=== PATIENT | female | born 1940 ===

== ENCOUNTER 2025-01-03 10:55 | Day surgery (SDC) | payer MEDICARE, BC ==
[~2025-01-03] VITALS: Ht 160 cm; Wt 78.0 kg
[2025-01-03] MEDS ORDERED: ACET500 (12:12)
[2025-01-03] MEDS ORDERED: BUSPIRONE HCL7.5 M1 (12:12)
[2025-01-03] MEDS ORDERED: 1/2 NS 250ml250 ML (12:13)
[2025-01-03] MEDS ORDERED: ZYRTEC10 M2 (12:13)
[2025-01-03] MEDS ORDERED: THERA-D2000 UNIT (12:13)
[2025-01-03] MEDS ORDERED: JUBLIA4 ML (12:14)
[2025-01-03] MEDS ORDERED: DULO30 (12:14)
[2025-01-03] MEDS ORDERED: ESZO2 (12:14)
[2025-01-03] MEDS ORDERED: DICLOFENAC SOD100 GM (12:14)
[2025-01-03] MEDS ORDERED: GABA100 (12:15)
[2025-01-03] MEDS ORDERED: FERSU300 (12:15)
[2025-01-03] MEDS ORDERED: IBUP100S (12:15)
[2025-01-03] MEDS ORDERED: LORA.5 (12:15)
[2025-01-03] MEDS ORDERED: L-Lysine500 M1 (12:16)
[2025-01-03] MEDS ORDERED: MIRABEGRON ER25 MG (12:16)
[2025-01-03] MEDS ORDERED: MSM1000 M2 (12:16)
[2025-01-03] MEDS ORDERED: PANT40 (12:17)
[2025-01-03] MEDS ORDERED: TOPI25C (12:17)
[2025-01-03] MEDS ORDERED: MULVITA (12:17)
[2025-01-03] MEDS ORDERED: TRAZ50 (12:17)
[2025-01-03] MEDS ORDERED: BRUKINSA80 MG (12:18)
[2025-01-03] MEDS ORDERED: TRIA15CR3 (12:19)
[2025-01-03] MEDS ORDERED: Benzocaine Oral Spray 0.5ML UD ONE (13:58)
[2025-01-03 15:52] VITALS: BP 122/65
== END 2025-01-03 15:40 | disposition home or self-care (01) ==
LOC: ORSCSDS 10:55
PROVIDERS: Specialist
PROC: 0DB58ZX Excision of Esophagus, Via Natural or Artificial Opening Endoscopic, Diagnostic (ICD-10-PCS; principal; 2025-01-03 13:15)
PROC: 0DB68ZX Excision of Stomach, Via Natural or Artificial Opening Endoscopic, Diagnostic (ICD-10-PCS; principal; 2025-01-03 13:15)
PROC: 0D758ZZ Dilation of Esophagus, Via Natural or Artificial Opening Endoscopic (ICD-10-PCS; principal; 2025-01-03 13:15)
PROC: 0DJD8ZZ Inspection of Lower Intestinal Tract, Via Natural or Artificial Opening Endoscopic (ICD-10-PCS; principal; 2025-01-03 13:15)
DX: R93.3 Abnormal findings on diagnostic imaging of other parts of digestive tract (principal); R13.10 Dysphagia, unspecified; K21.9 Gastro-esophageal reflux disease without esophagitis; K22.2 Esophageal obstruction; K44.9 Diaphragmatic hernia without obstruction or gangrene; K64.8 Other hemorrhoids; K57.30 Diverticulosis of large intestine without perforation or abscess without bleeding; D64.9 Anemia, unspecified; Z85.07 Personal history of malignant neoplasm of pancreas; F32.A Depression, unspecified; Z99.81 Dependence on supplemental oxygen; G47.30 Sleep apnea, unspecified; K29.50 Unspecified chronic gastritis without bleeding; K31.9 Disease of stomach and duodenum, unspecified; Z79.899 Other long term (current) drug therapy
CPT/HCPCS: 88305; 88342; A9270; C1769; J2704; J7120